=== PATIENT | female | born 1975 | race Caucasian/White ===

== ENCOUNTER 2017-03-29 20:48 | Observation (INO) | payer OTHER ==
[~2017-03-29] VITALS: Ht 165.1 cm; Wt 88.0 kg
[~2017-03-29 20:48] MED LIST: AMOX250C PO; PROC1TAB8 OR
[2017-03-29 20:50] VITALS: BP 163/89; PULSE 112; RESP 16; TEMP 98.6; O2SAT 98
--- NOTE | 2017-03-29 22:06 | RADRPT ---
EXAM DATE/TIME: 03/29/2017 21:54 [facility] COMPARISON: No previous studies available for comparison. INDICATIONS : Patient states they have chest tightness and pressure. MEDICAL HISTORY : None. SURGICAL HISTORY : None. ENCOUNTER: Initial ACUITY: 3 days PAIN SCORE: 2/10 LOCATION: chest FINDINGS: A single view of the chest demonstrates the lungs to be symmetrically aerated without evidence of mas s, infiltrate or effusion. The cardiomediastinal contours are unremarkable. Osseous structures are intact. CONCLUSION: No acute disease. Rufino Dowell MD on March 29, 2017 at 22:03 Board Certified Radiologist. This report was verified electronically.
[2017-03-29 22:08] LABS: AUTOMATED NEUTROPHIL # 5.5 TH/MM3 (1.8-7.7); BASOPHIL # 0.1 TH/MM3 (0-0.2); BASOPHIL % 0.6 % (0.0-2.0); EOSINOPHIL # 0.1 TH/MM3 (0-0.4); HEMATOCRIT 36.4 % (35.0-46.0); HEMO FLAGS DIFF FINAL; LYMPH % 24.4 % (9.0-44.0); MEAN CELL VOLUME 87.7 FL (80.0-100.0); MEAN CORPUSCULAR HEMOGLOBIN 29.7 PG (27.0-34.0); MEAN CORPUSCULAR HGB CONC 33.8 % (32.0-36.0); MONO % 7.6 % (0.0-8.0); NEUT % 66.4 % (16.0-70.0); PLATELET COUNT 239 TH/MM3 (150-450); RED BLOOD COUNT 4.15 MIL/MM3 (4.00-5.30); RED CELL DISTRIBUTION WIDTH 12.7 % (11.6-17.2); WHITE BLOOD COUNT 8.3 TH/MM3 (4.0-11.0)
[2017-03-29 22:31] LABS: ANION GAP 6 MEQ/L (5-15); BICARBONATE 27.1 MEQ/L (21.0-32.0); BLOOD UREA NITROGEN 13 MG/DL (7-18); CHLORIDE 105 MEQ/L (98-107); CREATINE KINASE 58 U/L (26-192); GLOMERULAR FILTRATION RATE 90 ML/MIN (>89); SODIUM (NA) 138 MEQ/L (136-145)
[2017-03-29 23:14] VITALS: O2SAT 97
[2017-03-29 23:15] VITALS: BP 114/72; PULSE 77; RESP 16; O2SAT 97
--- NOTE | 2017-03-29 23:39 | PD ---
HPI Chief Complaint: Chest Pain Time Seen by Provider: 23:34 Travel History International Travel<30 days: No Contact w/Intl Traveler<30days: No Traveled to known affect area: No History of Present Illness HPI This is a 41-year-old female with nonicteric number control and has no other cardiovascular risk factors and has a history of GERD presents with a complaint of midsternal chest pain. He states this feels different from her pain as she is experienced with GERD in the past. She complains of associated lightheadedness along with the chest pain and the chest pain is noted to be intermittent and it started while she was at rest. She denies fever chills cough nausea vomiting sweating. PFSH Past Medical History Diminished Hearing: No Migraines: Yes ?: Not : 2 Para: 2 Past Surgical History Section: Yes Other Surgery: Yes (BREAST SURGERY) Social History Alcohol Use: Yes (OCC) Tobacco Use: No Substance Use: No Allergies-Medications (Allergen,Severity, Reaction): Coded Allergies: Keflex (Verified Allergy, Severe, throat closes, 03/29/17) Reported Meds & Prescriptions Reported Meds & Active Scripts Active No Active Prescriptions or Reported Medications Review of Systems General / Constitutional: No: Fever, Chills, Weight Gain, Weight Loss, Other Eyes: No: Diploplia, Blurred Vision, Photophobia, Drainage, Redness, Foreign Body Sensation, Pain, Tearing, Blind Spots, Visual changes, Blindness, Other HENT: No: Headaches, Vertigo, Lightheadedness, Sore Throat, Rhinitis, Rhinorrhea, Congestion, Nosebleed, Neck Stiffness, Neck Pain, Masses, Gingival Bleeding, Dental Difficulties, Ear Discharge, Earache, Other Cardiovascular: Positive: Chest Pain or Discomfort, Other (lightheadedness ), No: Palpitations, Irregular Rhythm, Tachycardia, Diaphoresis, Syncope, Dyspnea on exertion, Varicosities, Edema, Cyanosis, Varicosities, Phlebitis, Claudication Respiratory: No: Cough, Shortness of Breath, Wheezing, Sneezing, Orthopnea, Hemoptysis, Stridor, Night Sweats, Pleuritic Pain, Other Gastrointestinal: No: Nausea, Vomiting, Diarrhea, Abdominal Pain, Hematemesis, Hematochezia, Constipation, Changes in Bowel Habits, Indigestion, Dysphagia, Loss of Appetite, Other Genitourinary: No: Urgency, Frequency, Dysuria, Nocturia, Hematuria, Decreased Urinary Output, Oliguria, Hesitancy, Dribbling, Incontinence, Pelvic Pain, Flank Pain, Dyspareunia, Discharge, Dysmenorrhea, Menorrhagia, Metorrhagia, Vaginal Bleeding, Other Musculoskeletal: No: Myalgias, Arthralgias, Limited ROM, Weakness, Cramping, Edema, Pain, Atrophy, Other Skin: No Rash, No Itching, No Dryness, No Lumps, No Hives, No Change in Pigmentation, No Change in nails, No Alopecia, No Lesions, No Breast Lumps, No Breast Tenderness, No Breast Swelling, No Other Neurologic: No: Weakness, Dizziness, Syncope, Focal Abnormalities, Coordination Problem, Tremor, Ataxia, Headache, Change in Mentation, Slurred Speech, Paresthesia, Incontinence, Seizures, Sensory Disturbance, Other Psychiatric: No: Anxiety, Depression, Suicidal Ideations, Disorder of Thought, Mood Disorder, Substance Abuse, Homicidal Ideation, Other Endocrine: No: Heat Intolerance, Cold Intolerance, Polyuria, Polydipsia, Other Hematologic/Lymphatic: No: Easy Bruising, Lymph Node Enlargement, Other Physical Exam Exam Limitations: Poor Historian Narrative GENERAL: This is a 42-year-old female in mild distress SKIN: Focused skin assessment warm/dry.no lesions no cyanosis no erythema HEAD: Atraumatic. Normocephalic. EYES: Pupils equal and round and reactive . No scleral icterus. No injection or drainage. ENT: No nasal bleeding or discharge. Mucous membranes pink and moist. NECK: Trachea midline. No JVD. CARDIOVASCULAR: S1-S2 appreciated. Regular rate and rhythm. No murmur appreciated. Pulses normal throughout. There is no reproducible chest pain on exam RESPIRATORY: No accessory muscle use. Clear to auscultation. Breath sounds equal bilaterally. GASTROINTESTINAL: Abdomen soft, non-tender, nondistended. Hepatic and splenic margins not palpable. Bowel sounds normal. No peritoneal signs. MUSCULOSKELETAL: No obvious deformities. No clubbing. No cyanosis. No edema. NEUROLOGICAL: Awake and alert and oriented 3.. No obvious cranial nerve deficits. Motor and sensory exam grossly within normal limits. Normal speech. No meningeal signs. PSYCHIATRIC: Appropriate mood and affect; insight and judgment normal. No suicidal or homicidal ideation. Data Data Last Documented VS Vital Signs Date Time Temp Pulse Resp B/P Pulse Ox O2 Delivery O2 Flow Rate FiO2 03/29/17 23:15 77 16 114/72 97 Room Air 03/29/17 20:50 98.6 Orders Electrocardiogram (03/29/17 21:19) Complete Blood Count With Diff (03/29/17 21:19) Basic Metabolic Panel (Bmp) (03/29/17 21:19) Ckmb (Isoenzyme) Profile (03/29/17 21:19) Troponin I (03/29/17 21:19) Chest, Single Ap (03/29/17 21:19) Iv Access Insert/Monitor (03/29/17 21:19) Ecg Monitoring (03/29/17 21:19) Oxygen Administration (03/29/17:) Oximetry (03/29/17 21:) Pantoprazole Inj (Protonix Inj) (03/30/17 00:00) Ondansetron Inj (Zofran Inj) (03/30/17 00:00) Ed Urine Pregnancytest Poc (03/29/17 23:47) Aspirin (Aspirin) (03/30/17 00:00) Ct Pulmonary Angiogram (03/30/17 ) Iohexol 350 Inj (Omnipaque 350 Inj) (03/30/17 00:42) Admit Order (Ed Use Only) (03/30/17 01:29) Activity Bed Rest With Brp (03/30/17 01:29) Vital Signs (Adult) Q4H (03/30/17 01:29) Cardiac Rhythm .As Directed (03/30/17 01:29) Notify Dr: Other .PRN (03/30/17 01:29) Notify Parameters (03/30/17 01:29) Resp Oxygen Nasal Cannula (03/30/17 ) Ckmb (Isoenzyme) Profile (03/30/17 01:42) Ckmb (Isoenzyme) Profile (03/30/17 04:42) Troponin I (03/30/17 01:42) Troponin I (03/30/17 04:42) Electrocardiogram (03/30/17 01:29) Electrocardiogram (03/30/17 04:29) ^ Obtain (03/30/17 01:29) Sodium Chloride 0.9% Flush (Ns Flush) (03/30/17 01:30) Sodium Chloride 0.9% Flush (Ns Flush) (03/30/17 09:00) Supervisor Publications Production / Telemetry BORA.Q8H (03/30/17 01:29) Labs Laboratory Tests Test 03/29/17 21:42 White Blood Count 8.3 TH/MM3 Red Blood Count 4.15 MIL/MM3 Hemoglobin 12.3 GM/DL Hematocrit 36.4 % Mean Corpuscular Volume 87.7 FL Mean Corpuscular Hemoglobin 29.7 PG Mean Corpuscular Hemoglobin 33.8 % Concent Red Cell Distribution Width 12.7 % Platelet Count 239 TH/MM3 Mean Platelet Volume 8.2 FL Neutrophils (%) (Auto) 66.4 % Lymphocytes (%) (Auto) 24.4 % Monocytes (%) (Auto) 7.6 % Eosinophils (%) (Auto) 1.0 % Basophils (%) (Auto) 0.6 % Neutrophils # (Auto) 5.5 TH/MM3 Lymphocytes # (Auto) 2.0 TH/MM3 Monocytes # (Auto) 0.6 TH/MM3 Eosinophils # (Auto) 0.1 TH/MM3 Basophils # (Auto) 0.1 TH/MM3 CBC Comment DIFF FINAL Differential Comment Sodium Level 138 MEQ/L Potassium Level 4.0 MEQ/L Chloride Level 105 MEQ/L Carbon Dioxide Level 27.1 MEQ/L Anion Gap 6 MEQ/L Blood Urea Nitrogen 13 MG/DL Creatinine 0.71 MG/DL Estimat Glomerular Filtration 90 ML/MIN Rate Random Glucose 81 MG/DL Calcium Level 8.8 MG/DL Total Creatine Kinase 58 U/L Troponin I LESS THAN 0.02 NG/ML MDM Medical Decision Making Medical Screen Exam Complete: Yes Emergency Medical Condition: Yes Medical Record Reviewed: Yes Interpretation(s) EKG shows normal sinus rhythm borderline LVH no acute ST changes Chest x-ray is negative for acute disease CTA of the chest and inhaled the chest is negative for PE Differential Diagnosis This is a 41-year-old female patient presents with a complaint of midsternal chest pain with associated lightheadedness started at rest EKG is negative for ischemia upon internal and negative using given pro times and Zofran and states she feels better the patient notes that this chest pain is different from the pain she experienced in the past with her GERD patient has no reproducible chest or abdominal discomfort on exam Sided to send patient to the chest pain center for serial cardiac enzymes and assessment for the need for stress testing. Vitals are stable Diagnosis Primary Impression: Chest pain Admitting Information Admitting Physician Requests: Observation Scripts No Active Prescriptions or Reported Meds Condition: Stable Akosua Greene MD Mar 29, 2017 23:39
[2017-03-30] VITALS (7 sets, daily range): BP systolic 107–112; BP diastolic 54–56; PULSE 69–95; RESP 16–20; TEMP 97.7–98.2; O2SAT 97–98
[2017-03-30] MEDS ORDERED: ASPIRIN 325 MG TAB PO ONE
[2017-03-30] MEDS ORDERED: ONDANSETRON HCL 4 MG/2 ML VIAL IV PUSH ONE
[2017-03-30] MEDS ORDERED: PANTOPRAZOLE SODIUM 40 MG VIAL IV PUSH ONE
[2017-03-30] MEDS ORDERED: IOHEXOL 350 MG/ML 10 ML VIAL (for RAD DIAG) IV ONE (00:42)
--- NOTE | 2017-03-30 00:47 | RADRPT ---
EXAM DATE/TIME: 03/30/2017 00:29 [facility] COMPARISON: No previous studies available for comparison. INDICATIONS : Chest tightness with pressure past 5 days. IV CONTRAST: 65 cc Omnipaque 350 (iohexol) IV RADIATION DOSE: 15.69 CTDIvol (mGy) MEDICAL HISTORY : None SURGICAL HISTORY : Hysterectomy. section. ENCOUNTER: Initial ACUITY: 4 - 6 days PAIN SCALE: 6/10 LOCATION: Bilateral chest TECHNIQUE: Volumetric scanning of the chest was performed using a pulmonary embolism protocol MIP images were re constructed. Using automated exposure control and adjustment of the mA and/or kV according to patien t size, radiation dose was kept as low as reasonably achievable to obtain optimal diagnostic quality images. DICOM format image data is available electronically for review and comparison. FINDINGS: PULMONARY ARTERIES: No filling defects are seen in the pulmonary arteries through the segmental level. LUNGS: There is no consolidation or pneumothorax . No concerning pulmonary nodule is visualized. PLEURAE: There is no pleural thickening or pleural effusion. MEDIASTINUM: There is good visualization of the great vessels of the middle mediastinum. No evidence of mediastin al or hilar adenopathy/mass. MUSCULOSKELETAL: Within normal limits for patient age. MISCELLANEOUS: The visualized upper abdominal organs demonstrate 5.2 cm area of low attenuation in the liver, right lobe. CONCLUSION: 1. No evidence for pulmonary embolism. 2. No infiltrate. 3. Nonspecific low density in the right lobe of liver. This is likely benign however outpatient contr asted MRI recommended. Pool Pandey MD on March 30, 2017 at 0:43 Board Certified Radiologist. This report was verified electronically.
[2017-03-30] MEDS ORDERED: SODIUM CHLORIDE 0.9% FLUSH 10 ML FLUSH IV FLUSH PRN (01:30)
[2017-03-30 03:12] LABS: CREATINE KINASE 51 U/L (26-192)
[2017-03-30 05:49] LABS: CREATINE KINASE 37 U/L (26-192)
[2017-03-30] MEDS: SODIUM CHLORIDE 0.9% FLUSH 10 ML FLUSH IV FLUSH SCH ×2 (08:24→08:33)
--- NOTE | 2017-03-30 10:37 | HHI.HP ---
HPI Primary Care Physician Radha Higgins MD Chief Complaint Chest pain History of Present Illness 41-year-old female with history of migraines presents emergency room for further evaluation of chest pain. Onset last week. Location substernal. Characterized as chest tightness, pressure, and "someone sitting on my chest." Nonexertional component. Pain usually occurs daily midday lasting approximately 1 hour. No radiation of pain. No associated symptoms of nausea, shortness of breath, or diaphoresis. No particular movement makes pain better or worse. Breathing does not make pain better or worse. Yesterday, after lunch, she became lightheaded and nauseous. Yesterday's episode of lightheadedness accompanied with one week of intermittent chest tightness patient decided to come the emergency room for further evaluation of chest pain. Denies any similar pain in the past. Review of Systems General: No fatigue,weakness, fever, chills, recent illness, or change in appetite. Has been in her general state of health, in fact she has recently increased her activity level. HEENT: No DOSS, no vision changes, no nasal congestion or drainage, no dysphasia. History of migraine. Generally has migraine monthly around time of menses. Migraines vary in intensity and duration from hours to 2 days. CV: As stated above. Denies any current chest pain or pressure. No palpitations or dizziness. RESP: No SOB, cough, wheeze, recent URI, or history of asthma GI: No current nausea otherwise as stated above. No vomiting, bowel changes, diarrhea, constipation, or pain. No unintentional weight gain or weight loss. : No dysuria, urgency, frequency,or history of kidney stones BARREL BURNER: Last menses 10 days ago. Denies chance of . EXT: No lower leg edema, no paraesthesias MS: No discomfort or change in ROM NEURO: No difficulty with balance, LOC, motor/sensory deficits PSYCH: No anxiety, depression, or situational stress. In fact states she recently was promoted and now her job is less stressful. 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 SKIN: No rashes, no concerning lesions Past Family Social History Allergies: Coded Allergies: Keflex (Verified Allergy, Severe, throat closes, 03/29/17) Past Medical History Migraines Past Surgical History Breast augmentation, Reported Medications Active No Active Prescriptions or Reported Medications Will use Aleve when necessary as needed for migraines Active Ordered Medications Current Medications Medications (Trade) Dose Ordered Sig/Juanita Route Start Time Stop Time Status Last Admin (NS Flush) 2 ml UNSCH PRN IV FLUSH 03/30/17 01:30 (NS Flush) 2 ml BID IV FLUSH 03/30/17 09:00 03/30/17 08:33 Family History Noncontributory for early onset cardiovascular disease Social History No known diabetes, hypertension, hyperlipidemia. Lifelong nonsmoker. Denies any alcohol or illegal drug use. Endorses an active lifestyle and has recently increased her daily activity. Works as a [employer]. Single. 2 children ages 15 and 5. Past cardiac testing None Physical Exam Vital Signs Vital Signs Date Time Temp Pulse Resp B/P Pulse Ox O2 Delivery O2 Flow Rate FiO2 03/30/17 07:40 98.2 78 16 107/55 97 03/30/17 05:23 76 03/30/17 03:45 97.7 74 20 112/54 98 03/30/17 02:13 97 21 03/29/17 23:15 77 16 114/72 97 Room Air 03/29/17 23:14 97 Room Air 03/29/17 20:50 98.6 112 16 163/89 98 Room Air Physical Exam GENERAL: Alert WN, WD, NAD, pleasant, mildly obese, female HEAD: NC, AT EYES: Sclera clear, conjunctiva without injection, pupils equal and round ENT: Mucous membranes pink and moist, no nasal discharge or bleeding NECK: Supple, no masses, trachea midline CV: RRR, without murmur, rub, gallop, no JVD, S1-S2 no S3-S4. No carotid or femoral bruits. RESP: Clear lungs throughout bilateral, no crackles, wheeze, rhonchi, symmetrical chest rise, nonlabored, able to speak in full sentences ABD: Soft, NT, ND, no masses, positive bowel tones, obese EXT: Pulses +24, no dependent edema MS: Chest pain reproducible upon palpation stating same pain that brought her to the ER. Normal tone 4 extremities,no obvious deformities, full range of motion NEURO: CN II through CN XII grossly intact, motor strength 5/5, gait WNL PSYCH: A+O 3, pleasant affect, appropriate speech, appropriate mood and affect , insight and judgment SKIN: Normal turgor, normal texture, no lesions, no rashes, brisk cap refill, even hair distribution Laboratory Laboratory Tests Test 03/29/17 03/30/17 03/30/17 21:42 02:17 04:43 White Blood Count 8.3 Red Blood Count 4.15 Hemoglobin 12.3 Hematocrit 36.4 Mean Corpuscular Volume 87.7 Mean Corpuscular Hemoglobin 29.7 Mean Corpuscular Hemoglobin 33.8 Concent Red Cell Distribution Width 12.7 Platelet Count 239 Mean Platelet Volume 8.2 Neutrophils (%) (Auto) 66.4 Lymphocytes (%) (Auto) 24.4 Monocytes (%) (Auto) 7.6 Eosinophils (%) (Auto) 1.0 Basophils (%) (Auto) 0.6 Neutrophils # (Auto) 5.5 Lymphocytes # (Auto) 2.0 Monocytes # (Auto) 0.6 Eosinophils # (Auto) 0.1 Basophils # (Auto) 0.1 CBC Comment DIFF FINAL Differential Comment Sodium Level 138 Potassium Level 4.0 Chloride Level 105 Carbon Dioxide Level 27.1 Anion Gap 6 Blood Urea Nitrogen 13 Creatinine 0.71 Estimat Glomerular Filtration 90 Rate Random Glucose 81 Calcium Level 8.8 Total Creatine Kinase 58 51 37 Troponin I LESS THAN 0.02 LESS THAN 0.02 LESS THAN 0.02 Result Diagram: 03/29/17214103/29/172141 Imaging Last Impressions CT Angiography 03/30/17 0000 Signed Impressions: Service Date/Time: March 00:29 - CONCLUSION: 1. No evidence for pulmonary embolism. 2. No infiltrate. 3. Nonspecific low density in the right lobe of liver. This is likely benign however outpatient contrasted MRI recommended. Pool Pandey MD Chest X-Ray 03/29/172118 Signed Impressions: Service Date/Time: Wednesday, March 29, 2017 21:54 - CONCLUSION: No acute disease. Rufino Dowell MD Course EKGs Normal sinus rhythm, normal axis, no st t segment changes Assessment and Plan Assessment and Plan Atypical chest pain-admitted to chest pain center. Ruled out with 3 sets of EKGs, cardiac enzymes, and monitor overnight. Seen and evaluated by Dr. Nathaniel Jones. Chest pain atypical and most likely musculoskeletal in nature. Will proceed with exercise stress test. Costochondritis-encouraged [id number] naproxen, 2 tablets, 2 days to take with food. May use heating pad to affected area. Follow-up with PCP if pain persists. Deepika Fernandes Mar 30, 2017 10:37
--- NOTE | 2017-03-30 10:40 | HHI.HP ---
HPI Primary Care Physician Radha Higgins MD Past Family Social History Allergies: Coded Allergies: Keflex (Verified Allergy, Severe, throat closes, 03/29/17) Reported Medications Reported Meds & Active Scripts Active No Active Prescriptions or Reported Medications Active Ordered Medications Current Medications Medications (Trade) Dose Ordered Sig/Juanita Route Start Time Stop Time Status Last Admin (NS Flush) 2 ml UNSCH PRN IV FLUSH 03/30/17 01:30 (NS Flush) 2 ml BID IV FLUSH 03/30/17 09:00 03/30/17 08:33 Physical Exam Vital Signs Vital Signs Date Time Temp Pulse Resp B/P Pulse Ox O2 Delivery O2 Flow Rate FiO2 03/30/17 07:40 98.2 78 16 107/55 97 03/30/17 05:23 76 03/30/17 03:45 97.7 74 20 112/54 98 03/30/17 02:13 97 21 03/29/17 23:15 77 16 114/72 97 Room Air 03/29/17 23:14 97 Room Air 03/29/17 20:50 98.6 112 16 163/89 98 Room Air Laboratory Laboratory Tests Test 03/29/17 03/30/17 03/30/17 21:42 02:17 04:43 White Blood Count 8.3 Red Blood Count 4.15 Hemoglobin 12.3 Hematocrit 36.4 Mean Corpuscular Volume 87.7 Mean Corpuscular Hemoglobin 29.7 Mean Corpuscular Hemoglobin 33.8 Concent Red Cell Distribution Width 12.7 Platelet Count 239 Mean Platelet Volume 8.2 Neutrophils (%) (Auto) 66.4 Lymphocytes (%) (Auto) 24.4 Monocytes (%) (Auto) 7.6 Eosinophils (%) (Auto) 1.0 Basophils (%) (Auto) 0.6 Neutrophils # (Auto) 5.5 Lymphocytes # (Auto) 2.0 Monocytes # (Auto) 0.6 Eosinophils # (Auto) 0.1 Basophils # (Auto) 0.1 CBC Comment DIFF FINAL Differential Comment Sodium Level 138 Potassium Level 4.0 Chloride Level 105 Carbon Dioxide Level 27.1 Anion Gap 6 Blood Urea Nitrogen 13 Creatinine 0.71 Estimat Glomerular Filtration 90 Rate Random Glucose 81 Calcium Level 8.8 Total Creatine Kinase 58 51 37 Troponin I LESS THAN 0.02 LESS THAN 0.02 LESS THAN 0.02 Result Diagram: 03/29/17214103/29/172141 Assessment and Plan Assessment and Plan Patient seen and examined with CHEESEMAKER HELPER. History and physical as recorded. Atypical CP of about a week duration. Protracted but does come and go. No other associated sx although some light headedness and nausea yesterday. This is non-exertional pain. PE: Chest wall tenderness RUQ duplicates discomfort she has been having RSR no GRM Abd without MGR A: Atypical CP probably secondary to costo-condritis RO ACS P: If neg evaluation disch to FU with her PCP Nathaniel Panchal MD Mar 30, 2017 10:40
--- NOTE | 2017-03-30 12:27 | HHI.DCPOC ---
Discharge Care Plan Diagnosis: (1) Musculoskeletal chest pain Goals to Promote Your Health * To prevent worsening of your condition and complications * To maintain your health at the optimal level Directions to Meet Your Goals Take your medications as prescribed Follow your dietary instruction Follow activity as directed Keep your appointments as scheduled Take your immunizations and boosters as scheduled If your symptoms worsen call your PCP, if no PCP go to Urgent Care Center or Emergency Room Smoking is Dangerous to Your Health. Avoid second hand smoke Call the 24-hour hour crisis hotline for domestic abuse at Deepika Fernandes Mar 30, 2017 12:27
--- NOTE | 2017-03-31 13:08 | EKG ---
Date Performed: 03/30/2017 Time Performed: 03:56:13 PTAGE: 41 years EKG: Sinus rhythm NORMAL ECG PREVIOUS TRACING : 01/20/2016 12.46 Since previous tracing, no significant change noted DOCTOR: Sarmad Fernández Interpretating Date/Time 03/31/2017 13:08:06
--- NOTE | 2017-03-31 13:09 | EKG ---
Date Performed: 03/30/2017 Time Performed: 02:17:47 PTAGE: 41 years EKG: Sinus rhythm NORMAL ECG NO PREVIOUS TRACING DOCTOR: Sarmad Fernández Interpretating Date/Time 03/31/2017 13:08:12
--- NOTE | 2017-03-31 13:11 | EKG ---
Date Performed: 03/29/2017 Time Performed: 21:26:14 PTAGE: 41 years EKG: Sinus rhythm NORMAL ECG NO PREVIOUS TRACING DOCTOR: Sarmad Fernández Interpretating Date/Time 03/31/2017 13:09:58
--- NOTE | 2017-03-31 13:21 | TR ---
Date Performed: 03/30/2017 Time Performed: 11:28:26 DOCTOR: Sarmad Fernández DRUG LIST: CLINICAL HISTORY: REASON FOR TEST: REASON FOR ENDING: OBSERVATION: CONCLUSION: Jeffry protocol completed. Stopped sec to leg fatigue and exceeding target heart rate . Maximum ZP=236 Target HR Achieved=90.0% Maximum BM=935/70 Total Exercise Time=5:02. No reprod chest discomfort. No ectopy. No st t segment changes to sugg ischemia. Normal bp response. Recovery quick and unremarkable. COMMENTS: Patient exercised using the Jeffry protocol. No electrocardiographic changes were seen to suggest ischemia. Hemodynamic response to exercise was normal. No significant arrhythmia was prese nt.
== END 2017-03-30 14:58 | disposition home or self-care (01) ==
LOC: NEPC 20:48 → NEDA 03-30 01:35 → NEPHCDU 03-30 02:44
PROVIDERS: ADMIT Internal Medicine Cardiovascular Disease; ATTEND Internal Medicine Cardiovascular Disease
DX: R07.89 Other chest pain (principal); M94.0 Chondrocostal junction syndrome [Tietze]
CPT/HCPCS: 71010; 71275; 80048; 82550; 84484; 84703; 85025; 93005; 93017; 96374; 96375; 99285; C9113; G0378; J2405; Q9967

== ENCOUNTER 2017-08-15 09:56 | Emergency (ER) | payer OTHER ==
[~2017-08-15] VITALS: Ht 165.1 cm; Wt 88.5 kg
[2017-08-15 10:01] VITALS: BP 133/81; PULSE 120; RESP 16; TEMP 98.3; O2SAT 97
[2017-08-15] MEDS ORDERED: ONDANSETRON HCL 4 MG/2 ML VIAL IV PUSH ONE (10:15)
[2017-08-15] MEDS ORDERED: SODIUM CHLOR 0.9% 1000 ML INJ 1,000 ML IV ONE ×2 (10:15)
--- NOTE | 2017-08-15 10:29 | PD ---
HPI Chief Complaint: GI Complaint Time Seen by Provider: 10:10 Travel History International Travel<30 days: No Contact w/Intl Traveler<30days: No Traveled to known affect area: No History of Present Illness HPI 42-year-old female says she been sick since Monday. She says she's had persistent vomiting and diarrhea. She is not having much abdominal pain. She says there is no chance of Reglan seemed. He has no history of abdominal surgery except for . There has not been any recent travel. No one else at home is consistent. She has had some chills. She is not aware of fever PFSH Past Medical History Cardiovascular Problems: No Diminished Hearing: No Migraines: Yes ?: Not LMP: 2 weeks ago : 2 Para: 2 Past Surgical History Section: Yes Other Surgery: Yes (BREAST SURGERY) Social History Alcohol Use: Yes (OCC) Tobacco Use: No Substance Use: No Allergies-Medications (Allergen,Severity, Reaction): Coded Allergies: cephalexin (Unverified Allergy, Severe, throat closes, 08/15/17) Reported Meds & Prescriptions Reported Meds & Active Scripts Active No Active Prescriptions or Reported Medications Review of Systems General / Constitutional: Positive: Chills, No: Fever Eyes: No: Diploplia HENT: No: Headaches, Vertigo Cardiovascular: No: Chest Pain or Discomfort, Palpitations Respiratory: No: Cough, Shortness of Breath Gastrointestinal: Positive: Nausea, Vomiting, Diarrhea Genitourinary: No: Frequency, Dysuria Skin: No Rash Neurologic: Positive: Weakness Physical Exam Narrative GENERAL: Well-developed female SKIN: Focused skin assessment warm/dry. HEAD: Atraumatic. Normocephalic. EYES: Pupils equal and round. No scleral icterus. No injection or drainage. ENT: No nasal bleeding or discharge. Mucous membranes dry NECK: Trachea midline. No JVD. CARDIOVASCULAR: Regular rate and rhythm. No murmur appreciated. RESPIRATORY: No accessory muscle use. Clear to auscultation. Breath sounds equal bilaterally. GASTROINTESTINAL: Abdomen soft, non-tender, nondistended. Hepatic and splenic margins not palpable. MUSCULOSKELETAL: No obvious deformities. No clubbing. No cyanosis. No edema. NEUROLOGICAL: Awake and alert. No obvious cranial nerve deficits. Motor grossly within normal limits. Normal speech. PSYCHIATRIC: Appropriate mood and affect; insight and judgment normal. Data Data Last Documented VS Vital Signs Date Time Temp Pulse Resp B/P (MAP) Pulse Ox O2 Delivery O2 Flow Rate FiO2 08/15/17 12:11 89 17 118/66 (83) 98 Room Air 08/15/17 10:01 98.3 Orders Orders Complete Blood Count With Diff (08/15/17 10:14) Comprehensive Metabolic Panel (08/15/17 10:14) Urinalysis - C+S If Indicated (08/15/17 10:14) Sodium Chlor 0.9% 1000 Ml Inj (Ns 1000 M (08/15/17 10:15) Sodium Chlor 0.9% 1000 Ml Inj (Ns 1000 M (08/15/17 10:15) Ondansetron Inj (Zofran Inj) (08/15/17 10:15) Labs Laboratory Tests Test 08/15/17 10:45 08/15/17 11:30 White Blood Count 9.9 TH/MM3 Red Blood Count 4.81 MIL/MM3 Hemoglobin 13.5 GM/DL Hematocrit 41.5 % Mean Corpuscular Volume 86.3 FL Mean Corpuscular Hemoglobin 28.1 PG Mean Corpuscular Hemoglobin Concent 32.5 % Red Cell Distribution Width 12.7 % Platelet Count 176 TH/MM3 Mean Platelet Volume 9.0 FL Neutrophils (%) (Auto) 82.7 % Lymphocytes (%) (Auto) 8.7 % Monocytes (%) (Auto) 6.6 % Eosinophils (%) (Auto) 0.2 % Basophils (%) (Auto) 1.8 % Neutrophils # (Auto) 8.1 TH/MM3 Lymphocytes # (Auto) 0.9 TH/MM3 Monocytes # (Auto) 0.7 TH/MM3 Eosinophils # (Auto) 0.0 TH/MM3 Basophils # (Auto) 0.2 TH/MM3 CBC Comment DIFF FINAL Differential Comment Blood Urea Nitrogen 15 MG/DL Creatinine 0.89 MG/DL Random Glucose 110 MG/DL Total Protein 8.2 GM/DL Albumin 4.3 GM/DL Calcium Level 8.7 MG/DL Alkaline Phosphatase 41 U/L Aspartate Amino Transf (AST/SGOT) 21 U/L Alanine Aminotransferase (ALT/SGPT) 29 U/L Total Bilirubin 0.5 MG/DL Sodium Level 137 MEQ/L Potassium Level 3.9 MEQ/L Chloride Level 107 MEQ/L Carbon Dioxide Level 18.8 MEQ/L Anion Gap 11 MEQ/L Estimat Glomerular Filtration Rate 69 ML/MIN Urine Collection Type CLEAN CATCH Urine Color YELLOW Urine Turbidity CLEAR Urine pH 6.0 Urine Specific [place] 1.032 Urine Protein 100 mg/dL Urine Glucose (UA) NEG mg/dL Urine Ketones NEG mg/dL Urine Occult Blood NEG Urine Nitrite NEG Urine Bilirubin NEG Urine Leukocyte Esterase NEG Urine RBC /hpf Urine WBC 0-2 /hpf Urine Squamous Epithelial Cells 0-5 /hpf Microscopic Urinalysis Comment CULT NOT INDICATED Urine Collection Time 11:30 [facility] Medical Decision Making Medical Screen Exam Complete: Yes Emergency Medical Condition: Yes Medical Record Reviewed: Yes Differential Diagnosis Differential includes viral syndrome, gastroenteritis, food poisoning, dehydration Narrative Course Patient given some IV fluids and Zofran and reports feeling a bit better. Lab work is unremarkable. Impression is acute gastroenteritis. She'll be released with prescription for Zofran Diagnosis Primary Impression: Acute gastroenteritis Scripts Ondansetron Odt (Zofran Odt) 4 Mg Tab 4 MG SL Q8HR Y for Nausea/Vomiting, #10 TAB 0 Refills Prov: Derrick Zimmerman MD 08/15/17 Disposition: 01 DISCHARGE HOME Condition: Stable Derrick Zimmerman MD Aug 15, 2017 10:29
[2017-08-15 11:10] LABS: AUTOMATED NEUTROPHIL # 8.1 TH/MM3 (1.8-7.7); BASOPHIL # 0.2 TH/MM3 (0-0.2); BASOPHIL % 1.8 % (0.0-2.0); EOSINOPHIL % 0.2 % (0.0-4.0); HEMATOCRIT 41.5 % (35.0-46.0); LYMPH % 8.7 % (9.0-44.0); LYMPHOCYTE # 0.9 TH/MM3 (1.0-4.8); MEAN CELL VOLUME 86.3 FL (80.0-100.0); MEAN CORPUSCULAR HEMOGLOBIN 28.1 PG (27.0-34.0); MEAN CORPUSCULAR HGB CONC 32.5 % (32.0-36.0); MONO % 6.6 % (0.0-8.0); NEUT % 82.7 % (16.0-70.0); PLATELET COUNT 176 TH/MM3 (150-450); RED BLOOD COUNT 4.81 MIL/MM3 (4.00-5.30); RED CELL DISTRIBUTION WIDTH 12.7 % (11.6-17.2); WHITE BLOOD COUNT 9.9 TH/MM3 (4.0-11.0)
[2017-08-15 11:13] LABS: HEMO FLAGS DIFF FINAL
[2017-08-15 11:18] LABS: CHLORIDE 107 MEQ/L (98-107); POTASSIUM 3.9 MEQ/L (3.5-5.1); SODIUM (NA) 137 MEQ/L (136-145)
[2017-08-15 11:22] LABS: ANION GAP 11 MEQ/L (5-15); BICARBONATE 18.8 MEQ/L (21.0-32.0); BLOOD UREA NITROGEN 15 MG/DL (7-18)
[2017-08-15 11:25] LABS: ALT (GPT) 29 U/L (10-53); AST (GOT) 21 U/L (15-37); GLOMERULAR FILTRATION RATE 69 ML/MIN (>89)
[2017-08-15 11:26] LABS: TOTAL BILIRUBIN ADULT 0.5 MG/DL (0.2-1.0)
[2017-08-15 11:28] LABS: ALKALINE PHOSPHATASE 41 U/L (45-117)
[2017-08-15 11:48] LABS: BLOOD, URINE NEG (NEG); GLUCOSE,URINE NEG (NEG); KETONE, URINE NEG (NEG); NITRITE,URINE NEG (NEG)
[2017-08-15 11:56] LABS: METHOD OF COLLECTION CLEAN CATCH; URINE COLOR YELLOW (YELLW/STRAW)
[2017-08-15 11:57] LABS: COMMENT (UR) CULT NOT INDICATED; CULTURE IF INDICATED CULT NOT INDICATED; SQUAMOUS EPITHELIAL CELL URINE 0-5 /hpf (0-5); WBC, URINE 0-2 /hpf (0-5)
[2017-08-15 12:11] VITALS: BP 118/66; PULSE 89; RESP 17; O2SAT 98
[2017-08-15] MEDS ORDERED: ZOFR4TAB3 SL (12:26)
== END 2017-08-15 12:46 | disposition home or self-care (01) ==
LOC: PHED 09:56
DX: K52.9 Noninfective gastroenteritis and colitis, unspecified (principal)
CPT/HCPCS: 80053; 81001; 85025; 96361; 96374; 99284; J2405; J7030

== ENCOUNTER 2018-01-01 12:17 | Emergency (ER) | payer OTHER ==
[~2018-01-01] VITALS: Ht 165.1 cm; Wt 90.9 kg
[~2018-01-01 12:17] MED LIST changes: -AMOX250C PO; -PROC1TAB8 OR; +ZOFR4TAB3 SL
[2018-01-01] MEDS ORDERED: IOHEXOL 350 MG/ML 10 ML VIAL (for RAD DIAG) IVCONTRAST ONE (12:18)
[2018-01-01 12:56] VITALS: BP 124/83; PULSE 91; RESP 18; TEMP 98.2; O2SAT 99
--- NOTE | 2018-01-01 13:59 | RADRPT ---
EXAM DATE/TIME: 01/01/2018 13:24 [facility] COMPARISON: No previous studies available for comparison. INDICATIONS : Right side chest pain down to hip. MEDICAL HISTORY : None. SURGICAL HISTORY : Hysterectomy. section. ENCOUNTER: Initial ACUITY: 2 days PAIN SCORE: 3/10 LOCATION: Right chest FINDINGS: PA and lateral views of the chest demonstrate the lungs to be symmetrically aerated without evidence of mass, infiltrate or effusion. The cardiomediastinal contours are unremarkable. Osseous structure s are intact. CONCLUSION: 1. No acute cardiopulmonary disease. Lalo Adams MD on January 01, 2018 at 13:56 Board Certified Radiologist. This report was verified electronically.
[2018-01-01 15:40] VITALS: BP 140/69; PULSE 84; RESP 18; O2SAT 100
[2018-01-01 16:16] LABS: ALT (GPT) 47 U/L (10-53); AST (GOT) 23 U/L (15-37); DIRECT BILIRUBIN ADULT 0.1 MG/DL (0.0-0.2)
[2018-01-01 16:17] LABS: ALKALINE PHOSPHATASE 43 U/L (45-117); INDIRECT BILIRUBIN 0.2 MG/DL (0.0-0.8); TOTAL BILIRUBIN ADULT 0.3 MG/DL (0.2-1.0); TOTAL PROTEIN 7.7 GM/DL (6.4-8.2)
--- NOTE | 2018-01-01 16:17 | PD ---
HPI Chief Complaint: Respiratory Symptoms Time Seen by Provider: 15:26 Travel History International Travel<30 days: No Contact w/Intl Traveler<30days: No Traveled to known affect area: No History of Present Illness HPI Patient is a 42-year-old female presenting to the emergency department for evaluation of chest pressure and shortness of breath. Patient states Monday night she was driving when the pain started. The pain is localized to her right anterior chest wall, there is radiation to the upper back. She reports her pain is a 2 out of 10, worse with deep breathing. Patient also reports a cough, nasal congestion. She denies any fever, chills, nausea, vomiting, abdominal pain, headache. Patient denies any significant past medical history other than migraines. The patient denies any family history of early heart disease. Patient has never been a tobacco user. Symptom onset was sudden, symptoms are waxing and waning. PFSH Past Medical History Cardiovascular Problems: No Diminished Hearing: No Migraines: Yes ?: Not : 2 Para: 2 Past Surgical History Section: Yes (x 2) Other Surgery: Yes (BREAST AUGMENTATION) Social History Alcohol Use: Yes (rare) Tobacco Use: No Substance Use: No Allergies-Medications (Allergen,Severity, Reaction): Coded Allergies: cephalexin (Unverified Allergy, Severe, throat closes, 08/15/17) Reported Meds & Prescriptions Reported Meds & Active Scripts Active Zofran Odt (Ondansetron Odt) 4 Mg Tab 4 Mg SL Q8HR PRN Review of Systems Except as stated in HPI: all other systems reviewed are Neg General / Constitutional: No: Fever, Chills Eyes: No: Blurred Vision HENT: No: Headaches, Lightheadedness Cardiovascular: Positive: Chest Pain or Discomfort Respiratory: Positive: Cough, Shortness of Breath, Pleuritic Pain Gastrointestinal: No: Nausea, Abdominal Pain Musculoskeletal: No: Myalgias Physical Exam Narrative GENERAL: Overweight, well-developed, alert female. Presenting in no acute distress. SKIN: Warm and dry. HEAD: Atraumatic. Normocephalic. EYES: Pupils equal and round. No scleral icterus. No injection or drainage. ENT: No nasal bleeding or discharge. Mucous membranes pink and moist. NECK: Trachea midline. No JVD. CARDIOVASCULAR: Regular rate and rhythm. RESPIRATORY: No accessory muscle use. Clear to auscultation. Breath sounds equal bilaterally. GASTROINTESTINAL: Abdomen soft, non-tender, nondistended. Hepatic and splenic margins not palpable. MUSCULOSKELETAL: Extremities without clubbing, cyanosis, or edema. No obvious deformities. NEUROLOGICAL: Awake and alert. No obvious cranial nerve deficits. Motor grossly within normal limits. Five out of 5 muscle strength in the arms and legs. Normal speech. PSYCHIATRIC: Appropriate mood and affect; insight and judgment normal. Data Data Last Documented VS Vital Signs Date Time Temp Pulse Resp B/P (MAP) Pulse Ox O2 Delivery O2 Flow Rate FiO2 01/01/18 15:40 84 18 140/69 (92) 100 Room Air 01/01/18 12:56 98.2 Orders Orders Electrocardiogram (01/01/18 12:59) Complete Blood Count With Diff (01/01/18 12:59) Act Partial Throm Time (Ptt) (01/01/18 12:59) Prothrombin Time / Inr (Pt) (01/01/18 12:59) Chest, Pa & Lat (01/01/18 12:59) Hepatic Functional Panel (01/01/18 15:33) Lipase (01/01/18 15:33) D-Dimer (01/01/18 15:33) Ecg Monitoring (01/01/18 15:33) Iv Access Insert/Monitor (01/01/18 15:33) Oximetry (01/01/18 15:33) Ct Pulmonary Angiogram (01/01/18 ) Ed Urine Pregnancytest Poc (01/01/18 16:17) Basic Metabolic Panel (Bmp) (01/01/18 15:40) Ckmb (Isoenzyme) Profile (01/01/18 15:40) Magnesium (Mg) (01/01/18 15:40) Troponin I (01/01/18 15:40) Iohexol 350 Inj (Omnipaque 350 Inj) (01/01/18 12:18) Labs Laboratory Tests Test 01/01/18 15:40 01/01/18 16:22 Prothrombin Time 10.8 SEC Prothromb Time International Ratio 1.1 RATIO Activated Partial Thromboplast Time 24.5 SEC D-Dimer Quantitative (PE/DVT) 0.73 MG/L FEU Blood Urea Nitrogen 13 MG/DL Creatinine 0.74 MG/DL Random Glucose 93 MG/DL Total Protein 7.7 GM/DL Albumin 4.0 GM/DL Calcium Level 8.5 MG/DL Magnesium Level 2.0 MG/DL Alkaline Phosphatase 43 U/L Aspartate Amino Transf (AST/SGOT) 23 U/L Alanine Aminotransferase (ALT/SGPT) 47 U/L Total Bilirubin 0.3 MG/DL Direct Bilirubin 0.1 MG/DL Sodium Level 140 MEQ/L Potassium Level 3.8 MEQ/L Chloride Level 105 MEQ/L Carbon Dioxide Level 22.7 MEQ/L Anion Gap 12 MEQ/L Estimat Glomerular Filtration Rate 86 ML/MIN Indirect Bilirubin 0.2 MG/DL Total Creatine Kinase 61 U/L Troponin I LESS THAN 0.02 NG/ML Lipase 98 U/L White Blood Count 5.8 TH/MM3 Red Blood Count 4.13 MIL/MM3 Hemoglobin 12.3 GM/DL Hematocrit 36.0 % Mean Corpuscular Volume 87.2 FL Mean Corpuscular Hemoglobin 29.7 PG Mean Corpuscular Hemoglobin Concent 34.1 % Red Cell Distribution Width 13.0 % Platelet Count 231 TH/MM3 Mean Platelet Volume 8.2 FL Neutrophils (%) (Auto) 69.7 % Lymphocytes (%) (Auto) 22.3 % Monocytes (%) (Auto) 6.5 % Eosinophils (%) (Auto) 0.9 % Basophils (%) (Auto) 0.6 % Neutrophils # (Auto) 4.0 TH/MM3 Lymphocytes # (Auto) 1.3 TH/MM3 Monocytes # (Auto) 0.4 TH/MM3 Eosinophils # (Auto) 0.1 TH/MM3 Basophils # (Auto) 0.0 TH/MM3 CBC Comment DIFF FINAL Differential Comment MDM Medical Decision Making Medical Screen Exam Complete: Yes Emergency Medical Condition: Yes Interpretation(s) Last Impressions Chest X-Ray 01/01/18 1259 Signed Impressions: Service Date/Time: Monday, January 01, 2018 13:24 - CONCLUSION: 1. No acute cardiopulmonary disease. Lalo Adams MD Laboratory Tests Test 01/01/18 15:40 01/01/18 16:22 Prothrombin Time 10.8 SEC Prothromb Time International Ratio 1.1 RATIO Activated Partial Thromboplast Time 24.5 SEC D-Dimer Quantitative (PE/DVT) 0.73 MG/L FEU Blood Urea Nitrogen 13 MG/DL Creatinine 0.74 MG/DL Random Glucose 93 MG/DL Total Protein 7.7 GM/DL Albumin 4.0 GM/DL Calcium Level 8.5 MG/DL Magnesium Level 2.0 MG/DL Alkaline Phosphatase 43 U/L Aspartate Amino Transf (AST/SGOT) 23 U/L Alanine Aminotransferase (ALT/SGPT) 47 U/L Total Bilirubin 0.3 MG/DL Direct Bilirubin 0.1 MG/DL Sodium Level 140 MEQ/L Potassium Level 3.8 MEQ/L Chloride Level 105 MEQ/L Carbon Dioxide Level 22.7 MEQ/L Anion Gap 12 MEQ/L Estimat Glomerular Filtration Rate 86 ML/MIN Indirect Bilirubin 0.2 MG/DL Total Creatine Kinase 61 U/L Troponin I LESS THAN 0.02 NG/ML Lipase 98 U/L White Blood Count 5.8 TH/MM3 Red Blood Count 4.13 MIL/MM3 Hemoglobin 12.3 GM/DL Hematocrit 36.0 % Mean Corpuscular Volume 87.2 FL Mean Corpuscular Hemoglobin 29.7 PG Mean Corpuscular Hemoglobin Concent 34.1 % Red Cell Distribution Width 13.0 % Platelet Count 231 TH/MM3 Mean Platelet Volume 8.2 FL Neutrophils (%) (Auto) 69.7 % Lymphocytes (%) (Auto) 22.3 % Monocytes (%) (Auto) 6.5 % Eosinophils (%) (Auto) 0.9 % Basophils (%) (Auto) 0.6 % Neutrophils # (Auto) 4.0 TH/MM3 Lymphocytes # (Auto) 1.3 TH/MM3 Monocytes # (Auto) 0.4 TH/MM3 Eosinophils # (Auto) 0.1 TH/MM3 Basophils # (Auto) 0.0 TH/MM3 CBC Comment DIFF FINAL Differential Comment Vital Signs Date Time Temp Pulse Resp B/P (MAP) Pulse Ox O2 Delivery O2 Flow Rate FiO2 01/01/18 15:40 84 18 140/69 (92) 100 Room Air 01/01/18 12:56 98.2 91 18 124/83 (97) 99 Differential Diagnosis ACS versus [place] versus bronchitis versus pneumonia versus anxiety versus pulmonary embolism versus other Narrative Course Patient is well-appearing 42-year-old female presenting for evaluation of chest pain and shortness of breath that started Monday. Patient's vital signs are stable, labs and imaging ordered and pending. Chest x-ray shows no acute disease. .CBC, chemistry, coags reviewed, no acute finding identified. D- dimer is elevated at 0.73. CT pulmonary angiogram ordered and pending. CT pulmonary angiogram is negative for pulmonary embolism. It does show a 2.2 cm thyroid nodule. Findings and plan of care was discussed with my attending physician. Patient will be discharged home with strict return precautions. Discussed findings with patient. Patient is comfortable being discharged home. She reports that she was worried about a blood clot more than her heart. She feels reassured that the findings were negative. Patient was given strict return precautions and is agreeable to plan. Patient stable for discharge. Diagnosis Primary Impression: Atypical chest pain Referrals: Primary Care Physician 3 days Patient Instructions: Chest Pain (ED), General Instructions Additional Instructions: Follow-up with your primary doctor Return to emergency department immediately for any new or worsening symptoms Med/Other Pt SpecificInfo: No Change to Meds Disposition: 01 DISCHARGE HOME Condition: Stable Bonnie Malcolm Jan 01, 2018 16:17
[2018-01-01 16:49] LABS: BASOPHIL % 0.6 % (0.0-2.0); EOSINOPHIL # 0.1 TH/MM3 (0-0.4); EOSINOPHIL % 0.9 % (0.0-4.0); HEMOGLOBIN 12.3 GM/DL (11.6-15.3); LYMPH % 22.3 % (9.0-44.0); LYMPHOCYTE # 1.3 TH/MM3 (1.0-4.8); MEAN CELL VOLUME 87.2 FL (80.0-100.0); MEAN CORPUSCULAR HEMOGLOBIN 29.7 PG (27.0-34.0); MEAN CORPUSCULAR HGB CONC 34.1 % (32.0-36.0); MEAN PLATELET VOLUME 8.2 FL (7.0-11.0); MONO % 6.5 % (0.0-8.0); MONOCYTE # 0.4 TH/MM3 (0-0.9); NEUT % 69.7 % (16.0-70.0); PLATELET COUNT 231 TH/MM3 (150-450); RED BLOOD COUNT 4.13 MIL/MM3 (4.00-5.30); WHITE BLOOD COUNT 5.8 TH/MM3 (4.0-11.0)
[2018-01-01 17:11] LABS: BICARBONATE 22.7 MEQ/L (21.0-32.0); BLOOD UREA NITROGEN 13 MG/DL (7-18); CALCIUM 8.5 MG/DL (8.5-10.1); CHLORIDE 105 MEQ/L (98-107); CREATININE 0.74 MG/DL (0.50-1.00); GLOMERULAR FILTRATION RATE 86 ML/MIN (>89); GLUCOSE,RANDOM 93 MG/DL (74-106); SODIUM (NA) 140 MEQ/L (136-145)
[2018-01-01 17:15] LABS: INTERNATIONAL NORMALIZED RATIO 1.1 RATIO; PROTHROMBIN TIME - PATIENT 10.8 SEC (9.8-11.6)
[2018-01-01 17:19] LABS: TROPONIN I LESS THAN 0.02 NG/ML (0.02-0.05)
--- NOTE | 2018-01-01 18:18 | RADRPT ---
EXAM DATE/TIME: 01/01/2018 18:01 [facility] COMPARISON: No previous studies available for comparison. INDICATIONS : Right sided chest pain with shortness of breath. IV CONTRAST: 70 cc Omnipaque 350 (iohexol) IV RADIATION DOSE: 10.47 CTDIvol (mGy) MEDICAL HISTORY : None SURGICAL HISTORY : None. ENCOUNTER: Initial ACUITY: 1 day PAIN SCALE: 3/10 LOCATION: Right chest TECHNIQUE: Volumetric scanning of the chest was performed using a pulmonary embolism protocol MIP images were re constructed. Using automated exposure control and adjustment of the mA and/or kV according to patien t size, radiation dose was kept as low as reasonably achievable to obtain optimal diagnostic quality images. DICOM format image data is available electronically for review and comparison. Follow-up recommendations for detected pulmonary nodules are based at a minimum on nodule size and pa tient risk factors according to Fleischner Society Guidelines. FINDINGS: PULMONARY ARTERIES: No filling defects are seen in the pulmonary arteries through the segmental level. LUNGS: There is no consolidation or pneumothorax . No concerning pulmonary nodule is visualized. PLEURAE: There is no pleural thickening or pleural effusion. MEDIASTINUM: There is good visualization of the great vessels of the middle mediastinum. No evidence of mediastin al or hilar adenopathy/mass. MUSCULOSKELETAL: Within normal limits for patient age. MISCELLANEOUS: The visualized upper abdominal organs demonstrate no acute abnormality. 2.2 cm right thyroid nodule. CONCLUSION: 1. Negative for pulmonary embolus. 2.2 cm right thyroid nodule or cyst. Rufino Dowell MD on January 01, 2018 at 18:12 Board Certified Radiologist. This report was verified electronically.
--- NOTE | 2018-01-01 20:14 | EKG ---
Date Performed: 01/01/2018 Time Performed: 15:25:49 PTAGE: 42 years EKG: Sinus rhythm NORMAL ECG No significant change from prior electrocardiogram. PREVIOUS TRACING : 03/30/2017 03.56 DOCTOR: Sandip Cheung Interpretating Date/Time 01/01/2018 20:12:46
== END 2018-01-01 19:03 | disposition home or self-care (01) ==
LOC: NEPD 12:17
DX: R07.89 Other chest pain (principal); R06.02 Shortness of breath
CPT/HCPCS: 71046; 71275; 80048; 80076; 82550; 83690; 83735; 84484; 84703; 85025; 85379; 85610; 85730; 93005; 99285; Q9967

== ENCOUNTER 2018-01-22 12:10 | Day surgery (SDC) | payer OTHER ==
[2018-01-22 13:06] VITALS: BP 159/97; PULSE 98; RESP 16; TEMP 98.2; O2SAT 100
[2018-01-22 13:50] VITALS: BP 135/73; PULSE 85; RESP 20; TEMP 98.4; O2SAT 97
[2018-01-22] MEDS ORDERED: LIDOCAINE HCL 1% PF 30 ML VIAL ONE (13:50)
--- NOTE | 2018-01-22 13:56 | PD.RAD ---
Post US Procedure Prog Note Pre Procedure Diagnosis: (1) Thyroid nodule Post Procedure Diagnosis: (1) Thyroid nodule Procedure Date: Jan 22, 2018 Supervising Radiologist: Paul Riojas Proceduralist/Assist: Rosalina Martinez RDMS Estimated blood loss: none Plan of Activity Patient to Unit: ROPU Patient Condition: Good See PACS Report for procedural detail/treatment Biopsy Imaging Guidance: Ultrasound Side: Right Biopsy Procedure: Thyroid Site: Right upper pole. Specimen: Fine Needle Aspirate Plan to ropu then discharge in 30 minutes. Paul Riojas MD Jan 22, 2018 13:55
--- NOTE | 2018-01-22 14:02 | RADRPT ---
EXAM DATE/TIME: 01/22/2018 12:43 [facility] COMPARISON: EXTERNAL COMPARISON: CT PULMONARY ANGIOGRAM, January 01, 2018, 18:01. CHEST PA & LAT, January 01, 2018, 13:24. Migue girard, Ultrasound Thyroid, Jan 16 2018. INDICATIONS : Right thyroid nodule. MEDICAL HISTORY : Right thyroid nodule. SURGICAL HISTORY : section. Breast augmentation. ENCOUNTER: Initial ACUITY: 4 - 6 days PAIN SCORE: 0/10 LOCATION: Right neck ORGAN: Right thyroid lobe SPECIMENS: Three fine needle aspirate(s) submitted for pathologic evaluation. DEVICE: 25 gauge needle Post procedure scanning reveals no hematoma or other complication. The possibility does exist that the tissue obtained will be non-diagnostic. If the sample is non-lilliam gnostic a repeat biopsy or surgical biopsy may need to be performed. TECHNIQUE: 1. Ultrasound guidance for needle biopsy. 2. Needle biopsy. The risks, benefits and alternatives to the procedure were explained and verbal and written consent w as obtained. The site was prepped in sterile fashion. Full sterile technique was used, including ca p, mask, sterile gloves and gown and a large sterile sheet. Hand hygiene and 2% chlorhexidine and/or betadine/alcohol prep was utilized per protocol for cutaneous antisepsis. The skin and subcutaneous tissues were infiltrated with local anesthetic solution. Sterile gel and sterile probe cover were u tilized for ultrasound guidance. With the patient on the ultrasound table, images were obtained. There are is a dominant cystic nodul e in the right mid thyroid gland measuring 2.3 cm. It contains a thin septation and no solid componen t. At the upper pole there is a 1.1 x 0.9 x 0.8 cm nodule that is partially cystic with a mural nodul e. This lesion was targeted for biopsy. A needle was advanced into the right upper lobe solid and cystic nodule and the number of specimens a s above obtained and submitted for pathologic evaluation. The patient tolerated the procedure well and left the ultrasound suite in stable condition. CONCLUSION: Uncomplicated ultrasound guided needle biopsy of a solid and cystic nodule in the right upper pole. Paul Riojas MD on January 22, 2018 at 13:58 Board Certified Radiologist. This report was verified electronically.
[2018-01-22 14:05] VITALS: BP 122/56; PULSE 89; RESP 18; O2SAT 98
== END 2018-01-22 15:02 | disposition home or self-care (01) ==
LOC: HRAD 12:10 → HRIP 12:15 → HRAD 15:02
PROVIDERS: ATTEND Family Medicine
DX: E04.1 Nontoxic single thyroid nodule (principal)
CPT/HCPCS: 10022; 76942; 88172; 88173

== ENCOUNTER 2018-03-04 22:27 | Emergency (ER) | payer OTHER ==
[~2018-03-04] VITALS: Ht 165.1 cm; Wt 99.0 kg
[2018-03-04 22:34] VITALS: BP 175/81; PULSE 117; RESP 18; TEMP 98; O2SAT 98
[2018-03-04] MEDS ORDERED: MAXA5TAB2 PO (22:42)
[2018-03-04] MEDS ORDERED: ORPHENADRINE INJ 60 MG/2 ML AMP IM ONE (23:30)
[2018-03-04] MEDS ORDERED: DEXAMETHASONE SOD PHOS 20 MG/5 ML VIAL IM ONE (23:30)
--- NOTE | 2018-03-04 23:38 | PD ---
HPI Chief Complaint: Pain: Acute or Chronic Time Seen by Provider: 23:18 Travel History International Travel<30 days: No Contact w/Intl Traveler<30days: No Traveled to known affect area: No History of Present Illness HPI 42-year-old female presents to the emergency department complaint of low back pain since yesterday evening when she twisted her ankle. Patient states she did not fall to the ground had no impact. Patient states she caught herself and prevented herself from falling but thinks that same time she may have strained her lower back. Patient has pre-existing low back pain and follows with a chiropractor and metal slitter for chronic low back pain. Patient states that she has history of sciatica. Patient states that her pain is quite severe when she does any type of rotational movement or attempts to get up and down from a chair or toilet or off of the floor. Patient states when she is moving walking seems to help her symptoms are remaining still seems to help her symptoms but has quite a bit of severe pain when transitioning from remaining still or ambulating. Patient has been taking Aleve without symptom relief. In fact 2 Aleve around 6 or 7 PM prior to arrival to the emergency department; she took 3 Aleve tablets total today. Patient does not report any bladder or bowel dysfunction or numbness tingling of the lower extremities but feels like both of her legs are slightly weak when she tries to rotate from soup although has no difficulty ambulating and has intact strength on ambulation. Patient states she drove herself to the hospital because of persistent back pain. Patient states this evening prior to starting to come to the hospital she had been doing exercises on the floor and as she attempted to get up off the floor she has severe pain and felt shaky on her legs. Patient does not report any subsequent fall her legs giving way on her. Patient states nonsteroidal anti- inflammatories and provided no relief and movement or transitioning movement increases her pain. Last menstrual period was 02/16/18 and normal for her and patient denies . [facility] Past Medical History Narrative Medical Sciatica migraine breast augmentation; occasional alcohol use; nursing notes reviewed Cardiovascular Problems: No Diminished Hearing: No Musculoskeletal: Yes (sciatica) Immunizations Current: Yes Migraines: Yes Tetanus Vaccination: Unknown Influenza Vaccination: Yes ?: Not LMP: 5-25-18 : 2 Para: 2 Past Surgical History Section: Yes (x 2) Other Surgery: Yes (BREAST AUGMENTATION) Social History Alcohol Use: Yes (rare) Tobacco Use: No Substance Use: No Allergies-Medications (Allergen,Severity, Reaction): Coded Allergies: cephalexin (Unverified Allergy, Severe, throat closes, 03/04/18) Reported Meds & Prescriptions Reported Meds & Active Scripts Active Reported Maxalt (Rizatriptan Benzoate) 5 Mg Tab 1 Tab PO DIRECTED Review of Systems Except as stated in HPI: all other systems reviewed are Neg General / Constitutional: No: Fever, Chills HENT: No: Congestion Cardiovascular: No: Chest Pain or Discomfort Respiratory: No: Shortness of Breath Gastrointestinal: No: Abdominal Pain, Constipation Genitourinary: No: Dysuria, Decreased Urinary Output, Incontinence Musculoskeletal: Positive: Pain (low back pain), No: Myalgias, Arthralgias Neurologic: Positive: Weakness, No: Dizziness, Syncope, Focal Abnormalities, Coordination Problem, Headache, Change in Mentation, Slurred Speech, Paresthesia , Sensory Disturbance Psychiatric: No: Anxiety Hematologic/Lymphatic: No: Easy Bruising Physical Exam Narrative GENERAL: Well-developed well-nourished female in no acute distress no respiratory distress however intermittently tearful SKIN: Warm and dry. HEAD: Normocephalic. EYES: No scleral icterus. No injection or drainage. NECK: Supple, trachea midline. No JVD or lymphadenopathy. CARDIOVASCULAR: Regular rate and rhythm without murmurs, gallops, or rubs. RESPIRATORY: Breath sounds equal bilaterally. No accessory muscle use. GASTROINTESTINAL: Abdomen soft, non-tender, nondistended. MUSCULOSKELETAL: No cyanosis, or edema. Low rounder and backer to palpation. BACK: Nontender without obvious deformity. Sensory exam intact. Motor strength 5/5. Pain on lower extremity extension hip flexion. No CVA tenderness. Data Data Last Documented VS Vital Signs Date Time Temp Pulse Resp B/P (MAP) Pulse Ox O2 Delivery O2 Flow Rate FiO2 03/04/18 22:34 98.0 117 18 175/81 (112) 98 Orders Orders Dexamethasone Inj (Decadron Inj) (03/04/18 23:30) Orphenadrine Inj (Norflex Inj) (03/04/18 23:30) Ct Lumb Spine W/O Contrast (03/05/18 ) Ketorolac Inj (Toradol Inj) (03/05/18 01:30) MDM Medical Decision Making Medical Screen Exam Complete: Yes Emergency Medical Condition: Yes Medical Record Reviewed: Yes Interpretation(s) Last Impressions Lumbar Spine CT 03/05/18 0000 Signed Impressions: CONCLUSION: 1. 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 2. No other evidence of fracture. 3. Mild degenerative findings. Central canal diameter within normal limits at all levels. 4. Scarring and punctate calcification of the left kidney Vital Signs Date Time Temp Pulse Resp B/P (MAP) Pulse Ox O2 Delivery O2 Flow Rate FiO2 03/04/18 22:34 98.0 117 18 175/81 (112) 98 Differential Diagnosis Sciatica, HNP, DDD, no findings for cauda equina Narrative Course Patient given injection of Norflex and Decadron as well as CT imaging study ordered Patient notes some improvement of symptoms although pain is not completely relieved patient is aware of imaging results Patient given Toradol 60 mg IM 1 injection Patient will be discharged with prescription for prednisone taper as well as Robaxin and 6 doses of narcotic pain medication with recommendation for close with her primary care provider will be given work excuse 3 days and encouraged to follow conservative management during that time should she have any change or concerns she should return to the emergency department as she may require MRI in the future although no indication at this time for emergent MRI of the lumbar spine Diagnosis Primary Impression: Sciatica of right side associated with disorder of lumbosacral spine Referrals: Primary Care Physician 1 day Patient Instructions: General Instructions Departure Forms: Tests/Procedures, Work Release Special Instructions: no work x 3 days Additional Instructions: Take medications as prescribed Do not take nonsteroidal anti-inflammatory medication such as ibuprofen/Advil/ Motrin or Aleve/Naprosyn/naproxen while taking steroid taper Follow-up with your primary care provider call office in a.m. No work 2 days Rest on firm surface and use moist heat for comfort after ice intermittently for first 1224 hrs. Return the emergency department for any concerns or change in condition Increase fluid hydration Med/Other Pt SpecificInfo: Prescription(s) given Scripts Oxycodone-Acetaminophen (Percocet) 5-325 mg Tab 1 TAB PO Q6H Y for PAIN, #6 TAB 0 Refills Prov: Camila Saldivar MD 03/05/18 Methocarbamol (Robaxin) 750 Mg Tab 750 MG PO Q6HR for Muscle Spasm, #12 TAB 0 Refills Prov: Camila Saldivar MD 03/05/18 Methylprednisolone Dosepak (Medrol Dosepak) 4 Mg Dspk 4 MG PO DIRECTED, #1 DSPK 0 Refills Per Pharmacist direction Prov: Camila Saldivar MD 03/05/18 Disposition: 01 DISCHARGE HOME Condition: Stable Camila Saldivar MD Mar 04, 2018 23:38
--- NOTE | 2018-03-05 00:56 | RADRPT ---
EXAM DATE: 03/05/2018 12:26 AM EDT AGE/SEX: 42 years / Female INDICATIONS: Lower back pain without recent trauma. CLINICAL DATA: This is the patient's initial encounter. Patient reports that signs and symptoms have been present for 1 day and indicates a pain score of 4/10. MEDICAL/SURGICAL HISTORY: . Sciatica. section. RADIATION DOSE: 40.17 CTDI (mGy) COMPARISON: No prior exams available for comparison. TECHNIQUE: Contiguous axial images were acquired with a multirow detector CT scanner without contras t. Multiplanar reconstructions in the sagittal and coronal plane were also performed. Using automate d exposure control and adjustment of the mA and/or kV according to patient size, radiation dose was k ept as low as reasonably achievable to obtain optimal diagnostic quality images. FINDINGS: Vertebrae: Bilateral pars interarticularis defects of L5 with corticated margins suggesting a chroni c finding. No other evidence of fracture. Alignment: Normal. No subluxation. T12-L1: The thecal sac has a normal diameter. No evidence of disc bulge or protrusion. The neural foramina are patent bilaterally. L1-L2: The thecal sac has a normal diameter. No evidence of disc bulge or protrusion. The neural f oramina are patent bilaterally. L2-L3: The thecal sac has a normal diameter. No evidence of disc bulge or protrusion. The neural f oramina are patent bilaterally. L3-L4: The thecal sac has a normal diameter. No evidence of disc bulge or protrusion. The neural f oramina are patent bilaterally. L4-L5: Central disc protrusion. Central canal diameter within normal limits. Neural foraminal diamet ers within normal limits. L5-S1: Bilateral pars interarticularis defects. Minimal grade 1 anterolisthesis. Mild bilateral neur al foraminal narrowing. Central canal diameter within normal limits. CONCLUSION: 1. 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 2. No other evidence of fracture. 3. Mild degenerative findings. Central canal diameter within normal limits at all levels. 4. Scarring and punctate calcification of the left kidney Electronically signed by: Lakhwinder Barkley MD 03/05/2018 12:55 AM EDT
[2018-03-05] MEDS ORDERED: MEDR4PAK PO (01:23)
[2018-03-05] MEDS ORDERED: ROBA750T PO (01:23)
[2018-03-05] MEDS ORDERED: PERC5TAB12 PO (01:23)
[2018-03-05] MEDS ORDERED: KETOROLAC TROMETHAMINE 60 MG/2 ML (IM) VIAL IM ONE (01:30)
[2018-03-05 01:33] VITALS: BP 158/86
== END 2018-03-05 01:35 | disposition home or self-care (01) ==
LOC: PHED 22:27
DX: M54.31 Sciatica, right side (principal); Z88.1 Allergy status to other antibiotic agents; Z79.899 Other long term (current) drug therapy
CPT/HCPCS: 72131; 96372; 99283; J1100; J1885; J2360